=== PATIENT | female | born 1965 | race Caucasian/White ===

== ENCOUNTER → 2022-05-05 16:07 | Outpatient (CLI) | payer BC, SELFPAY ==
--- NOTE | ~2022-05-05 | XR_ITS ---
EXAM: XR shoulder RT min 2V DATE: 05/05/2022 16:34 HISTORY: Pain of right shoulder joint . COMPARISON: None available. FINDINGS: Normal mineralization. No fracture or dislocation. No lytic or blastic lesion. Joint space s are maintained. No erosion or periosteal change. Soft tissues within normal limits. IMPRESSION: Normal right shoulder radiograph findings. Reviewed, dictated and finalized at location K.
--- NOTE | ~2022-05-05 | XR_ITS ---
EXAM: XR lumbar spine 2-3V DATE: 05/05/2022 16:34 HISTORY: Low back pain . COMPARISON: None available. FINDINGS: 5 nonrib-bearing lumbar-type vertebral bodies. Pedicles intact. Normal vertebral body alig nment. Vertebral body heights preserved. Mild multilevel disc space narrowing in the lumbar spine. Mi ld facet sclerosis at L5-S1. No fracture or dislocation. Cholecystectomy clips. Aortic calcification without evident aneurysm. Decreased mineralization. IMPRESSION: Mild lumbar degenerative disc change. Mild L5-S1 facet arthropathy. Reviewed, dictated and finalized at location K.
== END ==
PROVIDERS: PCP Family Medicine; Visit Provider Nurse Practitioner Family
DX: M47.817 Spondylosis without myelopathy or radiculopathy, lumbosacral region (principal); I70.0 Atherosclerosis of aorta; M25.511 Pain in right shoulder
CPT/HCPCS: 72100; 73030